=== PATIENT | male | born 1990 | race Two or more races ===

== ENCOUNTER 2017-12-26 14:07 | Emergency (ER) | payer MEDICAID ==
[~2017-12-26] VITALS: Ht 180.3 cm; Wt 74.8 kg
[2017-12-26 14:13] VITALS: BP 112/60
== END 2017-12-26 14:30 | disposition home or self-care (01) ==
LOC: ER 14:09
DX: L23.89 Allergic contact dermatitis due to other agents (principal)
CPT/HCPCS: A4606; Z7610

== ENCOUNTER 2018-07-11 23:44 | Emergency (ER) | payer MEDICAID, OTHER ==
[~2018-07-11] VITALS: Ht 180.3 cm; Wt 72.6 kg
[2018-07-12 00:13] LABS: BASOPHILS % (AUTO) 0.3 % (0.0-2.0); EOSINOPHILS % (AUTO) 3.1 % (0.0-6.0); HEMATOCRIT 38 % (39-51); HEMOGLOBIN 12.6 g/dL (13.5-17.5); LYMPHOCYTES # (AUTO) 2.4 /CMM (0.8-4.8); LYMPHOCYTES % (AUTO) 28.7 % (20.0-44.0); MEAN CORPUSCULAR HGB CONC 33 g/dl (31.0-36.0); MEAN CORPUSCULAR VOLUME 81 fL (80-96); MONOCYTES # (AUTO) 0.5 /CMM (0.1-1.30); MONOCYTES % (AUTO) 6.4 % (2.0-12.0); NEUTROPHILS # (AUTO) 5.1 /CMM (1.8-8.9); NEUTROPHILS % (AUTO) 61.5 % (43.0-81.0); PLATELET COUNT (AUTO) 227 /CMM (150-450); RDW COEFFICIENT OF VARIATION 13.8 (11.5-15.0); RED BLOOD CELL COUNT(AUTO) 4.77 MIL/uL (4.5-6.0); WHITE BLOOD COUNT (AUTO) 8.4 K/uL (4.3-11.0)
[2018-07-12 00:19] LABS: CARBON DIOXIDE 27 mmol/L (21-32); CHLORIDE 102 mmol/L (98-107); GLUCOSE 90 mg/dL (74-106); POTASSIUM 3.5 mmol/L (3.5-5.1); SODIUM SERUM 139 mmol/L (136-145); UREA NITROGEN, BLOOD 16 mg/dL (7-18)
[2018-07-12 00:28] LABS: TROPONIN I < 0.017 ng/mL (0.00-0.056)
[2018-07-12] MEDS ORDERED: IBUPROFEN 400 MG TABLET PO ONE (00:30)
[2018-07-12] MEDS ORDERED: IBUPROFEN 400 MG TABLET ONE (00:31)
[2018-07-12 00:32] LABS: INR 1.08 (0.87-1.13)
--- NOTE | 2018-07-12 00:33 | NUR ---
RADIOLOGY AT BEDSIDE FOR CXR
--- NOTE | 2018-07-12 00:51 | NUR ---
Luz [facility] in ED - 07/12/18 at 0056 by JULIA Patient discharged to home in stable condition. Written and verbal after care instructions given. Patient verbalizes understanding of instruction.
--- NOTE | 2018-07-12 00:58 | NUR ---
Patient discharged to home in stable condition. Written and verbal after care instructions given. Patient verbalizes understanding of instruction. seen and eval by er md charles to dc home [id number].
[2018-07-21 10:50] VITALS: BP 113/64
== END 2018-07-12 00:58 | disposition home or self-care (01) ==
LOC: ER 23:48
DX: R07.89 Other chest pain (principal); F32.9 Major depressive disorder, single episode, unspecified; F41.9 Anxiety disorder, unspecified; F19.10 Other psychoactive substance abuse, uncomplicated
CPT/HCPCS: 36415; 71045; 80048; 84484; 85025; 85730; 93005; 99285; A4606; Z7610

== ENCOUNTER 2022-06-09 08:13 | Emergency (ER) | payer OTHER ==
[~2022-06-09] VITALS: Ht 182.9 cm; Wt 70.3 kg
[2022-06-09 08:21] VITALS: BP 102/60
--- NOTE | 2022-06-09 08:23 | NUR ---
DR PAYNE AT THE BEDSIDE
--- NOTE | 2022-06-09 08:25 | NUR ---
The ptient bibs for c/o cough and congestion, bilateral ear discomfort x 3 days. Denies pain. In room air and denies SOB. Respiration regular and unlabored. Will continue to monitor the patient.
[2022-06-09] MEDS ORDERED: CETI1TAB9 PO (08:30)
[2022-06-09] MEDS ORDERED: NEOM10DR11 EACH EAR (08:30)
--- NOTE | 2022-06-09 08:34 | NUR ---
Patient discharged to home in stable condition. Written and verbal after care instructions given. Patient verbalizes understanding of instruction.
--- NOTE | 2022-06-09 08:35 | NUR ---
unable to depart the patient from [facility]
== END 2022-06-09 08:36 | disposition home or self-care (01) ==
LOC: ER 08:35
DX: J06.9 Acute upper respiratory infection, unspecified (principal); F32.A Depression, unspecified; F41.9 Anxiety disorder, unspecified; F17.200 Nicotine dependence, unspecified, uncomplicated; Z79.899 Other long term (current) drug therapy